=== PATIENT | male | born 2000 | race Two or more races ===

== ENCOUNTER 2019-07-08 12:37 | Emergency (ER) | payer MEDICAID ==
[~2019-07-08] VITALS: Ht 182.9 cm; Wt 56.1 kg
--- NOTE | 2019-07-08 14:26 | NUR ---
pt ambulated back to room, changed into gown, sitting up on gurney, NAD, even and unlabored respirations, denies additional needs, call light within reach, WCTM. waiting for rads
[2019-07-08] MEDS ORDERED: KETOROLAC 30 MG/1 ML IM ONE (14:30)
--- NOTE | 2019-07-08 14:47 | NUR ---
pt reports coming in for right shoulder and wrist pain. Reports he was supposed to have a "rotator cuff repair surgery tomorrow but it got cancelled" because of the coronavirus. Pt also reports rib soreness on the right due to falling against the toilet. NAD, call light within reach, TM
[2019-07-08] MEDS ORDERED: KETOROLAC 30 MG/1 ML ONE (14:58)
--- NOTE | 2019-07-08 15:43 | NUR ---
pt resting in [facility], [facility], given water for comfort, call light within reach, denies additional needs at this, WCTM.
[2019-07-08 15:50] VITALS: BP 106/62
== END 2019-07-08 15:52 | disposition home or self-care (01) ==
LOC: ED 14:37
DX: M25.511 Pain in right shoulder (principal); M79.641 Pain in right hand
CPT/HCPCS: 71101; 73030; 73130; 96372; 99284; J1885

== ENCOUNTER 2020-06-29 11:27 | Emergency (ER) | payer MEDICAID ==
[~2020-06-29] VITALS: Ht 182.9 cm; Wt 56.1 kg
--- NOTE | 2020-06-29 13:19 | NUR ---
DIESEL SCOOP OPERATOR: PT TO ROOM FROM SUNITHA CRUZ
[2020-06-29] MEDS ORDERED: QUET400T7 PO (13:41)
[2020-06-29] MEDS ORDERED: ALPR1TAB PO (13:41)
[2020-06-29 13:52] LABS: BASOPHILS % (AUTO) 0 % (0-1); EOSINOPHILS % (AUTO) 0 % (1-7); LYMPHOCYTES % (AUTO) 12 % (22-44); MD NO; MEAN CORPUSCULAR HEMOGLOBIN 30.5 pg (27.5-34.5); MEAN CORPUSCULAR HGB CONC 34.6 g/dL (33.2-36.2); MEAN PLATELET VOLUME 8.8 fL (7.4-10.4); MONOCYTES % (AUTO) 4 % (2-9); NEUTROPHILS % (AUTO) 84 % (42-75); PLATELET COUNT 262 x10^3/uL (130-400); RED BLOOD COUNT 5.09 x10^6/uL (4.38-5.82); RED CELL DISTRIBUTION WIDTH 13.1 % (9.4-14.8)
[2020-06-29 13:58] LABS: ALANINE AMINOTRANSFERASE 15 U/L (12-78); ALBUMIN 4.4 g/dL (3.4-5.0); ANION GAP 13 mmol/L (5-15); CALCIUM 9.5 mg/dL (8.5-10.1); CHLORIDE 119 mmol/L (98-107)
[2020-06-29 14:00] LABS: ALKALINE PHOSPHATASE 87 U/L (45-117); BILIRUBIN,TOTAL 0.4 mg/dL (0.2-1.0); TOTAL PROTEIN 7.7 g/dL (6.4-8.2)
--- NOTE | 2020-06-29 14:02 | NUR ---
pt is a 20m with complaints of chest tightness and palpitations since this morning. he also complains of diarrhea x 3 days. friend at bedside. threat monitoring analyst, bp and sp02 monitors in place. call light within reach.
[2020-06-29] MEDS ORDERED: ZONI100C36 PO (14:04)
[2020-06-29] MEDS ORDERED: OXCA300T3 PO (14:05)
[2020-06-29 14:45] VITALS: BP 110/70
[2020-06-29] MEDS ORDERED: ACETAMINOPHEN 325 MG TABLET ONE (14:47)
--- NOTE | 2020-06-29 14:50 | NUR ---
pt appears very anxious. Warm blankets provided, TV remote provided, medicated per emar. Ice water provided. friend at bedside. All monitors continue in place.
[2020-06-29] MEDS ORDERED: ACETAMINOPHEN 325 MG TABLET PO ONE (15:00)
--- NOTE | 2020-06-29 15:14 | NUR ---
provider at bedside to discuss disposition.
--- NOTE | 2020-06-29 15:21 | NUR ---
pt upset with d/c stating "you want me to get in a car feeling like this?" He did not want to wait for d/c paperwork and walked out with his friend. He was advised to come back if his symptoms worsen or if he needed to be seen again. he walked out with a steady gait.
== END 2020-06-29 15:38 | disposition home or self-care (01) ==
LOC: ED 14:17
DX: F41.1 Generalized anxiety disorder (principal); R06.4 Hyperventilation; R19.7 Diarrhea, unspecified; R06.00 Dyspnea, unspecified; R06.02 Shortness of breath; R42 Dizziness and giddiness; R07.89 Other chest pain; R00.0 Tachycardia, unspecified; R10.9 Unspecified abdominal pain; R51.9 Headache, unspecified
CPT/HCPCS: 36415; 71046; 74021; 80053; 83690; 84295; 85025; 93005; 99285